=== PATIENT | female | born 1965 | race Caucasian/White ===

== ENCOUNTER → 2019-05-01 12:32 | Outpatient (CLI) | payer OTHER, SELFPAY ==
--- NOTE | 2019-05-01 | DI.MG.S_ITS ---
BILATERAL DIGITAL SCREENING MAMMOGRAM 3D/2D WITH CAD: 05/01/2019 CLINICAL: Routine screening. Comparison is made to exams dated: 10/25/2015 mammogram, 11/06/2016 mammogram, and 11/21/2017 mammogram - [facility]. The tissue of both breasts is heterogeneously dense. This may lower the sensitivity of mammography. Current study was also evaluated with a Computer Aided Detection (CAD) system. No significant masses, calcifications, or other findings are seen in either breast. There has been no significant interval change. IMPRESSION: NEGATIVE There is no mammographic evidence of malignancy. A 1 year screening mammogram is recommended. This exam was interpreted at Station ID: [id number]. NOTE: For mammograms, a report in lay terms will be sent to the patient. Approximately 15% of breast malignancies will not be visualized mammographically. In the management of a palpable breast mass, a negative mammogram must not discourage biopsy of a clinically suspicious lesion. Electronically Signed By: Ellen green/crys:05/03/2019 08:35:31 letter sent: Normal Exam ACR BI-RADS Category 1: Negative 3341F
== END ==
PROVIDERS: PCP Family Medicine; Referring Provider Family Medicine; Visit Provider Family Medicine
DX: Z12.31 Encounter for screening mammogram for malignant neoplasm of breast (principal)
CPT/HCPCS: 77063; 77067

== ENCOUNTER → 2020-05-10 11:10 | Outpatient (CLI) | payer OTHER, SELFPAY ==
--- NOTE | 2020-05-10 | DI.MG.S_ITS ---
BILATERAL DIGITAL SCREENING MAMMOGRAM 3D/2D WITH CAD: 05/10/2020 CLINICAL: Routine screening. Comparison is made to exams dated: 05/01/2019 mammogram - [facility], 11/21/2017 mammogram, and 11/06/2016 mammogram - [facility]. The tissue of both breasts is heterogeneously dense. This may lower the sensitivity of mammography. Current study was also evaluated with a Computer Aided Detection (CAD) system. No significant masses, calcifications, or other findings are seen in either breast. There has been no significant interval change. IMPRESSION: NEGATIVE There is no mammographic evidence of malignancy. A 1 year screening mammogram is recommended. This exam was interpreted at Station ID: [id number]. NOTE: For mammograms, a report in lay terms will be sent to the patient. Approximately 15% of breast malignancies will not be visualized mammographically. In the management of a palpable breast mass, a negative mammogram must not discourage biopsy of a clinically suspicious lesion. Electronically Signed By: Ashutosh eller/crys:05/10/2020 11:38:08 letter sent: Normal Exam ACR BI-RADS Category 1: Negative 3341F
== END ==
PROVIDERS: Referring Provider Family Medicine; Visit Provider Family Medicine
DX: Z12.31 Encounter for screening mammogram for malignant neoplasm of breast (principal)
CPT/HCPCS: 77063; 77067

== ENCOUNTER → 2021-05-29 16:42 | Outpatient (CLI) | payer OTHER, SELFPAY ==
--- NOTE | 2021-05-29 16:44 | DI.MG.S_ITS ---
BILATERAL DIGITAL SCREENING MAMMOGRAM 3D/2D WITH CAD: 05/29/2021 CLINICAL: Routine screening. Comparison is made to exams dated: 05/10/2020 mammogram, 05/01/2019 mammogram - , and 11/21/2017 mammogram - [facility]. The tissue of both breasts is heterogeneously dense. This may lower the sensitivity of mammography. Current study was also evaluated with a Computer Aided Detection (CAD) system. There are benign post operative findings in the right breast. No significant masses, calcifications, or other findings are seen in either breast. There has been no significant interval change. IMPRESSION: BENIGN There is no mammographic evidence of malignancy. A 1 year screening mammogram is recommended. This exam was interpreted at Station ID: [id number]. NOTE: For mammograms, a report in lay terms will be sent to the patient. Approximately 15% of breast malignancies will not be visualized mammographically. In the management of a palpable breast mass, a negative mammogram must not discourage biopsy of a clinically suspicious lesion. Electronically Signed By: Ellen green/crys:05/30/2021 09:08:06 letter sent: Normal Exam ACR BI-RADS Category 2: Benign Finding(s) 3342F
== END ==
PROVIDERS: Referring Provider Family Medicine; Visit Provider Family Medicine
DX: Z12.31 Encounter for screening mammogram for malignant neoplasm of breast (principal)
CPT/HCPCS: 77063; 77067

== ENCOUNTER → 2022-07-29 15:26 | Outpatient (CLI) | payer OTHER, SELFPAY ==
--- NOTE | 2022-07-29 15:29 | DI.MG.S_ITS ---
BILATERAL DIGITAL SCREENING MAMMOGRAM 3D/2D WITH CAD: 07/29/2022 CLINICAL: Routine screening. Comparison is made to exams dated: 05/29/2021 mammogram, 05/10/2020 mammogram, 05/01/2019 mammogram - [facility], and 11/21/2017 mammogram - [facility]. Both breasts are heterogeneously dense, which may obscure small masses (category c / 51-75% glandular tissue). Current study was also evaluated with a Computer Aided Detection (CAD) system. There are benign post operative findings in the right breast. No significant masses, calcifications, or other findings are seen in either breast. There has been no significant interval change. IMPRESSION: BENIGN There is no mammographic evidence of malignancy. A 1 year screening mammogram is recommended. Based on the Tyrer Cuzick model (a risk assessment model) the patient's lifetime risk is 11.0% and her 10 year risk is 3.6%. According to the ACR, ACS, and NCCN guidelines, an annual breast MRI exam along with mammogram is recommended if the patient's lifetime risk is 20% or greater. This exam was interpreted at Station ID: [id number]. NOTE: For mammograms, a report in lay terms will be sent to the patient. Approximately 15% of breast malignancies will not be visualized mammographically. In the management of a palpable breast mass, a negative mammogram must not discourage biopsy of a clinically suspicious lesion. Electronically Signed By: Douglas delgado/crys:07/30/2022 08:15:49 letter sent: Normal Exam ACR BI-RADS Category 2: Benign Finding(s) 3342F
== END ==
PROVIDERS: Referring Provider Family Medicine; Visit Provider Family Medicine
DX: Z12.31 Encounter for screening mammogram for malignant neoplasm of breast (principal)
CPT/HCPCS: 77063; 77067

== ENCOUNTER 2023-04-28 08:42 | Outpatient (RCR) | payer OTHER, SELFPAY ==
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
--- NOTE | 2023-04-28 17:25 | PT.OPPOC ---
Physical, Occupational & Speech Therapy At [facility] Current Diagnoses Stress incontinence (female) (male) (04/28/23) Postmenopausal atrophic vaginitis (04/28/23) Asymptomatic menopausal state (04/28/23) Visit Care Team Role Provider Type Robe Elliott DO Attending Provider Non-Staff Family Provider Primary Care Provider Referring Provider Specialty: Family Practice Address: [place], [address] Email: Plan Of Care PT-OP-T Assessment and Plan Start: 04/18/23 19:35 Freq: Status: Active Protocol: Document 04/28/23 07:22 LRN (Rec: 04/28/23 09:49 LRN [id number]) Physical Therapy Assessment Rehab Potential Rehabilitation Potential Excellent Evaluation Complexity Number of Personal Factors/Comorbidities 1-2 Number of Body Systems Impaired 3 Clinical Presentation at Evaluation Evolving Impairments Impairments ROM,Strength,Transfers Goals Two Impairment Pt demonstrates poor core pressure managment. Short Term Goal (STG) Pt will be educated in proper core pressure management with transfers (sup<>sit<>stand) and ADLs. STG Duration 2 visits - 05/09/23 Web Design Intern Goal (LTG) Pt will be demonstrate or show knowledge of core pressure managment with daily ADLs. LTG Duration 3 visits- 05/20/23 One Impairment Pt lacks appropriate self care HEP. Short Term Goal (STG) Pt education in PF contractions in isolation of substitute muscles and with breathe. STG Duration 2 visits - 05/09/23 Usp Goal (LTG) Pt will be independent with a self care HEP of PF/core/hip strengthening and hip (IR L, ER R)/trunk (R rot) ROM exercises to do at home. LTG Duration 3 visits- 05/20/23 Assessment Summary Assessment Pt is a 57 yo female who presents with stress urinary incontinence with PF/core/hip weakness, and decreased mobility of her hip rotators and asymmetry of trunk rotators. The pt will benefit from skilled physical therapy to address the previously stated dysfunctions and to promote changes to achieve the above stated goals. The pt is choosing to only be seen for placement on a self care HEP; therefore treatment will be focused on a HEP and exercise and education as appropriate if possible to be achieved within her insurance limit time constraint (up to ), but extension of authorization will likely be needed as the pt's work schedule is limiting her ability to attend physical therapy within insurance providers time limit. Physical Therapy Plan Frequency and Duration Frequency of Treatment 1x/Week Duration of treatment (weeks) 4 Plan of Care Start Date 04/28/23 Plan of Care End Date 05/20/23 Therapeutic Interventions Therapeutic Interventions Home Exercise Program,Manual Therapy,Neuromuscular Re- education,Self-Care/Home Management,Soft Tissue Mobilization,Therapeutic Activities,Therapeutic Exercises Modalities Cold Pack/Ice Massage Next Visit Focus/Plan Next Note Type Treatment Note Next Visit Plan DC to HEP in 3 visits, but pt agreeable to more if needed. Assess bladder diary and bowel involvements with recommendations as appropriate . Next (2nd) visit: Pt educated in proper core pressure management with transfers (sup<>sit<>stand); HEP: PF(R>L lat wall,anter, linker up)/core(TA,rot,lat trunk) /hip (flex/IR) strengthening with proper breathing and possible pillows under hips, and difference between urinary and menstrual pads. Last (3rd) visit: Pt to demonstrate or show knowledge of core pressure managment with daily ADLs, and HEP of hip stretches (IR L, ER R) and strengthening exercises and trunk stretch (R rot ROM). Plan of Care Dates Plan of Care Start Date 04/28/23 Plan of Care End Date 05/20/23 Electronically Signed by: Sarah Lua, PT 04/28/23 [id number] If you are in agreement with this Plan of Care, please return a signed and dated copy. I have reviewed this Plan of Care and certify that the skilled therapy services above are required to meet the patient?s needs. Physician Signature Date Printed Name and Credentials Clinical Instructor Signature Printed Name and Credentials
--- NOTE | 2023-06-30 08:09 | PT-OP ANOTE ---
Msg left notifying pt that she is past her Plan of Care expiration date; therefore will be discharged from therapy and whe will need a new referral to return for therapy.
--- NOTE | 2023-06-30 08:14 | PT.OPDS ---
Current Diagnoses Stress incontinence (female) (male) (04/28/23) Postmenopausal atrophic vaginitis (04/28/23) Asymptomatic menopausal state (04/28/23) Visit Care Team Role Provider Type Robe Elliott DO Attending Provider Non-Staff Family Provider Primary Care Provider Referring Provider Specialty: Family Practice Address: [place], [address] Email: Visit Number Visit Number 1 Discharge Summary PT-OP-B Current Condition Start: 04/18/23 19:35 Freq: Status: Active Protocol: Document 04/28/23 07:22 LRN (Rec: 04/28/23 09:49 LRN [id number]) Current Condition History of Current Condition Onset Date 6 months ago Current Complaints Tiny amounts urinary leakage with sit<>stand transfers History of Current Condition Incontinence with sneezing, laughing, coughing for several years. 6 months ago noticed urinary leakage was getting worse, got out of bed and dribbled urine and also urinary leakage of tiny amounts with sit<>stand transfers. Prior Treatments and Tests Premarin estrogen cream - 10 yrs. Treatment Goals Patient/Caregiver Goals Pt goal is: be taught ex's to do at home for up to 3 visits . Personal Factors Other Personal Factors That May Effect Lives in [facility]. PT-OP-C Subjective Start: 04/18/23 19:35 Freq: Status: Active Protocol: Document 04/28/23 07:22 LRN (Rec: 04/28/23 09:49 LRN [id number]) Patient Questionnaires Pelvic Pain and Urgency/Frequency Patient Symptom Scale Pelvic Pain Score 0 PT-OP-I Pelvic Floor Start: 04/18/23 19:35 Freq: Status: Active Protocol: Document 04/28/23 07:22 LRN (Rec: 04/28/23 09:49 LRN [id number]) Pelvic Floor Assessment Urine Urinary Symptoms Dribbling After Urination Other Urinary Symptoms Leakage with sit<>stand. Leakage Size Small Leakage Cause Cough,Sneeze,Urge Other Leakage Causes Jumping. Crosses legs to prevent leakage with coughing, sneezing. Nocturia 0-1 Pads Used In 24 Hours 1 Urine Pad Type Panty Liner Bowel Bowel Movement Frequency Mostly daily or every other day. [place] Stool Chart Type 1-7 4 Prolapse Prolapse Comments Not well visualized. Perineal Descent Resting Absent Bearing Absent Contraction Ability Voluntary Contraction Weak Manual Muscle Testing Left 3 Manual Muscle Testing Right 1 Manual Muscle Testing Anterior 2 Manual Muscle Testing Posterior 2 Muscle Endurance (Seconds) 2 Number of Quick Contractions In 10 6 Seconds Comments Pelvic Floor Comments Pt have very small vaginal opening; therefore was difficult to visualize bladder position. PT-OP-J Posture/Palpation/Skin Start: 04/18/23 19:35 Freq: Status: Active Protocol: Document 04/28/23 07:22 LRN (Rec: 04/28/23 09:49 LRN [id number]) Posture Evaluation Position Standing Head/C-Spine Posture Forward Head L-Spine Posture Increased Lordosis Shoulder Posture (L) Elevated Scapula Posture (L) Rotated Up,(L) Elevated Arm Posture (L) Internally Rotated,(R) Internally Rotated Pelvis Posture (L) Iliac Crest Superior Hip Posture (L) Externally Rotated,(R) Externally Rotated Knee Posture (L) Genu Valgus,(R) Genu Valgus Comments Posture Comments R>L hips in ER, L buttock crease is high and R gluteus scarlet appears greater in size. PT-OP-K Range of Motion Start: 04/18/23 19:35 Freq: Status: Active Protocol: Document 04/28/23 07:22 LRN (Rec: 04/28/23 09:49 LRN [id number]) Lumbar Spine Range of Motion Lumbar Spine Active Degrees Testing Position Standing Flexion 100 Extension 20 Rotation Left 40 Rotation Right 30 Lateral Flexion Left 15 Lateral Flexion Right 15 Comments Trunk AROM: Flexion is 100 deg?s with 65 deg?s hip flexion, Trunk extension is 20 deg?s with 10 deg?s hip extension. Hip Goniometric Range of Motion Hip Right Passive Testing Position Supine Internal Rotation 45 External Rotation 60 Left Passive Testing Position Supine Internal Rotation 25 External Rotation 70 PT-OP-M Strength Start: 04/18/23 19:35 Freq: Status: Active Protocol: Document 04/28/23 07:22 LRN (Rec: 04/28/23 09:49 LRN [id number]) Trunk Strength Trunk Manual Muscle Testing Core Stabilization Poor core stabilization with MMT of LE's, showing weakness of trunk rotators and lateral trunk muscles. Hip Strength Hip Manual Muscle Testing Right Flexion (L2) 3+ Fair+ Internal Rotation 3+ Fair+ Comments Strength is 5/5 except as indicated above. Left Flexion (L2) 3+ Fair+ Internal Rotation 3 Fair Comments Strength is 5/5 except as indicated above. PT-OP-T Assessment and Plan Start: 04/18/23 19:35 Freq: Status: Active Protocol: Document 06/30/23 08:10 LRN (Rec: 06/30/23 08:14 LRN [id number]) Physical Therapy Assessment Goals Two Impairment Pt demonstrates poor core pressure managment. Short Term Goal (STG) Pt will be educated in proper core pressure management with transfers (sup<>sit<>stand) and ADLs. STG Duration 2 visits - 05/09/23 Assisted Goal (LTG) Pt will be demonstrate or show knowledge of core pressure managment with daily ADLs. LTG Duration 3 visits- 05/20/23 One Impairment Pt lacks appropriate self care HEP. Short Term Goal (STG) Pt education in PF contractions in isolation of substitute muscles and with breathe. STG Duration 2 visits - 05/09/23 Bleach Maker Goal (LTG) Pt will be independent with a self care HEP of PF/core/hip strengthening and hip (IR L, ER R)/trunk (R rot) ROM exercises to do at home. LTG Duration 3 visits- 05/20/23 Assessment Summary Assessment Pt was seen only for her initial evaluation on 04/28/23, and has not returned to therapy family reasons. The pt has been notified by phone that her plan of care end date has passed; therefore is being discharged from therapy and a new referral will be needed she returns. Pt goals were not met. Physical Therapy Plan Frequency and Duration Frequency of Treatment 1x/Week Duration of treatment (weeks) 4 Plan of Care Start Date 04/28/23 Plan of Care End Date 05/20/23 Discharge Physical Therapy Discharge Reasons No Longer Attending PT Discharge Comments Pt will need a new referral to return for physical therapy. Thank you for your referral.
== END 2023-07-10 14:17 ==
LOC: PHYS 08:42
PROVIDERS: Family Provider Family Medicine; PCP Family Medicine; Referring Provider Family Medicine; Visit Provider Family Medicine
DX: N39.3 Stress incontinence (female) (male) (principal); N95.2 Postmenopausal atrophic vaginitis; Z78.0 Asymptomatic menopausal state
CPT/HCPCS: 97162; 97535

== ENCOUNTER → 2023-08-13 13:03 | Outpatient (CLI) | payer OTHER, SELFPAY ==
--- NOTE | 2023-08-13 13:04 | DI.MG.S_ITS ---
BILATERAL DIGITAL SCREENING MAMMOGRAM 3D/2D WITH CAD: 08/13/2023 CLINICAL: Routine screening. Comparison is made to exams dated: 07/29/2022 mammogram, 05/29/2021 mammogram, and 05/10/2020 mammogram - [facility]. Both breasts are heterogeneously dense, which may obscure small masses (category c / 51-75% glandular tissue). Current study was also evaluated with a Computer Aided Detection (CAD) system. There are benign post operative findings in the right breast. No significant masses, calcifications, or other findings are seen in either breast. There has been no significant interval change. IMPRESSION: BENIGN There is no mammographic evidence of malignancy. A 1 year screening mammogram is recommended. Based on the Tyrer Cuzick model (a risk assessment model) the patient's lifetime risk is 10.9% and her 10 year risk is 3.8%. According to the ACR, ACS, and NCCN guidelines, an annual breast MRI exam along with mammogram is recommended if the patient's lifetime risk is 20% or greater. This exam was interpreted at Station ID: [id number]. NOTE: For mammograms, a report in lay terms will be sent to the patient. Approximately 15% of breast malignancies will not be visualized mammographically. In the management of a palpable breast mass, a negative mammogram must not discourage biopsy of a clinically suspicious lesion. Electronically Signed By: Mingo leyva/crys:08/13/2023 14:03:53 letter sent: Normal Exam ACR BI-RADS Category 2: Benign Finding(s) 3342F
== END ==
LOC: MAMMO 13:04
PROVIDERS: Family Provider Family Medicine; PCP Family Medicine; Referring Provider Family Medicine; Visit Provider Family Medicine
DX: Z12.31 Encounter for screening mammogram for malignant neoplasm of breast (principal); R92.333 Mammographic heterogeneous density, bilateral breasts
CPT/HCPCS: 77063; 77067

== ENCOUNTER → 2024-08-13 11:54 | Outpatient (CLI) | payer OTHER, SELFPAY ==
--- NOTE | 2024-08-13 11:57 | DI.MG.S_ITS ---
MM screening mammo BI: 08/13/2024. BI-RADS: 1 CLINICAL: 58-year old female for bilateral screening mammogram. Tyrer-Cuzick lifetime risk of 8.9%. No personal or first-degree family history of breast cancer. The patient had a prior right breast biopsy. PRIOR EXAMS 08/13/2023, 07/29/2022, 05/29/2021, 05/10/2020, 05/01/2019, 10/28/2014. MAMMOGRAPHY TECHNIQUE: 2D and 3D (tomosynthesis) digital mammographic views obtained, with additional images as needed for full coverage. Current study was also evaluated with a Computer Aided Detection (CAD) system. DENSITY C. The breasts are heterogeneously dense, which may obscure small masses. MAMMOGRAPHY FINDINGS Bilateral: No suspicious mass, asymmetry, microcalcification, or other abnormality seen. IMPRESSION: * No evidence of malignancy. RECOMMENDATIONS Bilateral * Annual screening mammography. OVERALL ASSESSMENT CATEGORY BI-RADS-1: Negative. The [employer] recommends annual screening mammography beginning at age 40 for women with average risk of breast cancer. ELECTRONICALLY SIGNED: Randy Alcaraz M.D. on 08/13/2024 at 11:04:01 PM PT Interpreting Station ID: [id number]
== END ==
PROVIDERS: Family Provider Family Medicine; PCP Physician Assistant; Referring Provider Family Medicine; Visit Provider Family Medicine
DX: Z12.31 Encounter for screening mammogram for malignant neoplasm of breast (principal); R92.333 Mammographic heterogeneous density, bilateral breasts
CPT/HCPCS: 77063; 77067